=== PATIENT | male | born 1965 | race Caucasian/White ===

== ENCOUNTER 2018-04-15 03:57 | Inpatient (IN) | payer OTHER ==
[2018-04-15] MEDS ORDERED: FAMOTIDINE 20 MG/50 ML IVPB 20 MG/50 ML MG IVPB ONE ×2 (04:02→04:19)
[2018-04-15] MEDS ORDERED: MAG HYDROX/AL HYDROX/SIMETH 30 ML UNIT-DOSE CUP PO ONE (04:02)
--- NOTE | 2018-04-15 04:02 | PDOC ---
History of Present Illness - General Stated Complaint: ABD PAIN History Source: Patient Exam Limitations: No Limitations - History of Present Illness Travel History: No Initial Comments: 04/15/18 04:38 Best Contact: PCP:Dr.Richard Castillo [phone] Pmhx: HTN, SZ, Diastolic HF Pshx: Lap appendectomy, Left elbow orif, F/L shoulder arthroscopy Allergies:NKDA FH:0 Social Hx: Cigarettes/ denies Alcohol/social Drugs/ Heroin, cocaine Last alcohol consumption: x3d ago/3 [employer] and 2 shots of vodka 04/15/18 04:59 52-year-old male presents to the emergency department complaining of epigastric abdominal discomfort since approximately 0200 hrs. this morning. Pain is described as 10/10 sharp constant nonradiating discomfort. The pain is exacerbated on touch and sent movements and there are no alleviating factors. Patient states he had a cheeseburger with a milkshake at approximately 0130 hrs. at a diner. Patient should be at the pain with the food he had. Patient states he was trying to burp to make himself feel better but he was unable to do so. Patient denies fever, chills, nausea/vomiting/ diarrhea, headache, dizziness, lightheadedness, facial pains, neck pain/back pain, chest pain, shortness of breath, flank pains, urinary symptoms: Frequency/ urgency/hesitancy, burning upon urination or hematuria, extremity numbness or tingling sensation. Patient denies history of similar symptoms. Patient initially denied ever drinking alcohol but then admitted to having consumed 3 [employer] sent to shots of vodka 3 days ago. No history of pancreatitis. Past History - Past Medical History Allergies/Adverse Reactions: Allergies Allergy/AdvReac Type Severity Reaction Status Date / Time No Known Allergies Allergy Verified 04/15/18 04:23 Home Medications: Ambulatory Orders Amlodipine Besylate 10 mg PO DAILY 12/04/17 Aspirin 81 mg PO DAILY 12/04/17 Furosemide [Lasix] 60 mg PO BID 12/04/17 Metoprolol Succinate 25 mg PO DAILY 12/04/17 Sacubitril/Valsartan [Entresto 49 mg-51 mg Tablet] 1 tab PO BID 12/04/17 COPD: No HTN: Yes Hypercholesterolemia: Yes - Immunization History Immunization Up to Date: Yes - Suicide/Smoking/Psychosocial Hx Smoking History: Never smoked Have you smoked in the past 12 months: No Hx Alcohol Use: No Drug/Substance Use Hx: No Substance Use Type: Heroin Review of Systems - Review of Systems Able to Perform ROS?: Yes Comments:: 04/15/18 04:15 CONSTITUTIONAL: Absent: fever, chills, diaphoresis, generalized weakness, malaise, loss of appetite HEENT: Absent: rhinorrhea, nasal congestion, throat pain, throat swelling, difficulty swallowing, mouth swelling, ear pain, eye pain, visual Changes CARDIOVASCULAR: Absent: chest pain, loss of consciousness, palpitations, irregular heart rate, peripheral edema RESPIRATORY: Absent: cough, shortness of breath, dyspnea with exertion, orthopnea, wheezing, stridor, hemoptysis GASTROINTESTINAL: +epigastric abd pain Absent:abdominal distension, nausea, vomiting, diarrhea, constipation, melena, hematochezia GENITOURINARY: Absent: dysuria, frequency, urgency, hesitancy, hematuria, flank pain, genital pain MUSCULOSKELETAL: Absent: myalgia, arthralgia, joint swelling SKIN: Absent: rash, itching, pallor HEMATOLOGIC/IMMUNOLOGIC: Absent: easy bleeding, easy bruising, lymphadenopathy, frequent infections ENDOCRINE: Absent: unexplained weight gain, unexplained weight loss, heat intolerance, cold intolerance NEUROLOGIC: Absent: headache, focal weakness or paresthesias, dizziness, unsteady gait, seizure, mental status changes, bladder or bowel incontinence PSYCHIATRIC: Absent: anxiety, depression, suicidal or homicidal ideation, hallucinations. Is the patient limited Wolof proficient: No *Physical Exam - Physical Exam Comments: 04/15/18 04:16 GENERAL: Well developed, well nourished. Awake and alert. No acute distress. HEENT: Normocephalic, atraumatic. PERRLA, EOMI. No conjunctival pallor. Sclera are non- icteric. Moist mucous membranes. Oropharynx is clear. NECK: Supple. Full ROM. No JVD. Carotid pulses 2+ and symmetric, without bruits. No thyromegaly. No lymphadenopathy. CARDIOVASCULAR: Regular rate and rhythm. No murmurs, rubs, or gallops. Distal pulses are 2+ and symmetric. PULMONARY: No evidence of respiratory distress. Lungs clear to auscultation bilaterally. No wheezing, rales or rhonchi. ABDOMINAL: Soft. Non-tender. Non-distended. No rebound or guarding. No organomegaly. Normoactive bowel sounds. MUSCULOSKELETAL Normal range of motion at all joints. No bony deformities or tenderness. No CVA tenderness. EXTREMITIES: No cyanosis. No clubbing. No edema. No calf tenderness. SKIN: Warm and dry. Normal capillary refill. No rashes. No jaundice. NEUROLOGICAL: Alert, awake, appropriate. Cranial nerves 2-12 intact. No deficits to light touch and temperature in face, upper extremities and lower extremities. No motor deficits in the in face, upper extremities and lower extremities. Normoreflexic in the upper and lower extremities. Normal speech. Toes are down- going bilaterally. Gait is normal without ataxia. PSYCHIATRIC: Cooperative. Good eye contact. Appropriate mood and affect. ED Treatment Course - LABORATORY CBC & Chemistry Diagram: 04/15/18 04:00 04/15/18 04:00 - RADIOLOGY Radiograph Interpretation: 04/15/18 06:26 CAT scan abdomen/pelvis IV contrast. Preliminary findings: No appreciable pancreatic enlargement or pancreatic/peripancreatic inflammation/very early pancreatitis may not be visualized on CT. The lipase is over 3000 and therefore , it is quite possible that there is pancreatitis but not yet visible on CT. Cholelithiasis is noted. Best seen on the coronal view there is a 8.8 mm x 2 mm calcification in the area of the distal common bile duct near the ampulla. The possibility of common bile duct stone needs to be considered. Correlate with biliary enzymes to help with obstruction. Evaluate for obstruction. MRCP may be helpful to better visualize the biliary stones. MR may help to visualize pancreatic edema not seen on CT. Normal spleen, adrenal glands, no urinary tract stone or obstruction. No bowel obstruction or inflammation. No free intraperitoneal air or fluid fluid. Bilateral inguinal hernias containing vessels and fat but no bowel. Nonobstructed. Small hiatal hernia. Some fluid retain or reflux into the distal esophagus. Osseous structures are intact. Progress Note - Progress Note Progress Note: 0503hrs: Call Dr. Castillo [phone]/pt's PMD 0546hrs: Spoke to radiologist Dr. Key who states he sees a 8.5 mm distal common bile duct stone 0631hrs: Called [facility]/surgery combustion engineer: [phone] 0637hrs: SPoke to Dr. Torres/surgery combustion engineer. will see pt this am Medical Decision Making - Medical Decision Making 04/15/18 05:47 52-year-old male with a history of hypertension and seizures presents to the ER complaining of epigastric discomfort. Patient states he had consumed alcohol 3 days ago and has no history of pancreatitis. Lipase: 2985 with an elevated WBC of 20,000. Patient was sent for abdomen and pelvis without by mouth or IV contrast due to elevated creatinine level of 2.2. Spoke to radiologist who sees the 8.5 mm distal common bile duct stone. This can be a biliary pancreatitis. Patient's PMD/Dr. Saad Castillo is not affiliated with [facility]. Therefore, patient will be admitted to hospitalist. MRCP will be a helpful in visualizing biliary's stones *DC/Admit/Observation/Transfer Diagnosis at time of Disposition: Pancreatitis Qualifiers: Chronicity: acute Pancreatitis type: unspecified pancreatitis type Acute pancreatitis complication: unspecified Qualified Code(s): K85.90 - Acute pancreatitis without necrosis or infection, unspecified Biliary stones Qualifiers: Cholelithiasis location: bile duct Cholecystitis presence: with cholecystitis Cholecystitis acuity: acute Biliary obstruction: with biliary obstruction Qualified Code(s): K80.43 - Calculus of bile duct with acute cholecystitis with obstruction - Discharge Dispostion Condition at time of disposition: Fair Decision to Admit order: Yes - Referrals - Patient Instructions - Post Discharge Activity
[2018-04-15 04:18] LABS: BASO % 0.2 % (0-2.0); EOS % 0.1 % (0-4.5); HEMATOCRIT 54.9 % (35.4-49); HEMOGLOBIN 19.3 GM/dL (11.7-16.9); LYMPH % 3.4 % (8-40); MCH 29.7 pg (25.7-33.7); MCHC 35.2 g/dl (32.0-35.9); MEAN CELL VOLUME 84.5 fl (80-96); MEAN PLT VOLUME 9.1 fl (7.5-11.1); MONO % 5.5 % (3.8-10.2); NEUT % 90.8 % (42.8-82.8); PLATELET COUNT 369 K/MM3 (134-434); RBC 6.49 M/mm3 (4.00-5.60)
[2018-04-15] MEDS ORDERED: MAG HYDROX/AL HYDROX/SIMETH 30 ML UNIT-DOSE CUP ONE (04:19)
[2018-04-15 04:24] VITALS: BMI 38.0
[2018-04-15] MEDS ORDERED: morphine CARPU-JECT 4 MG/1 ML DISP.SYRIN IVPUSH ONE (04:27)
[2018-04-15] MEDS ORDERED: ONDANSETRON 4 MG/2 ML VIAL IVPUSH ONE (04:28)
[2018-04-15] MEDS ORDERED: ONDANSETRON 4 MG/2 ML VIAL ONE (04:30)
[2018-04-15] MEDS ORDERED: morphine SULFATE 4 MG/ML VIAL ONE (04:30)
[2018-04-15 04:50] LABS: ALK PHOS 82 U/L (45-117); ANION GAP 9 MMOL/L (8-16); BILIRUBIN,TOTAL 5.6 mg/dL (0.2-1); BLOOD UREA NITROGEN 29 mg/dL (7-18); CALCIUM 9.5 mg/dL (8.5-10.1); CHLORIDE 99 mmol/L (98-107); CO2 28 mmol/L (21-32); CREATININE 2.2 mg/dL (0.55-1.3); GLUCOSE,RANDOM 129 mg/dL (74-106); LIPASE 3985 U/L (73-393); POTASSIUM 4.7 mmol/L (3.5-5.1); SGOT/AST 88 U/L (15-37); SGPT/ALT 115 U/L (13-61); SODIUM 136 mmol/L (136-145); TOT PROT 7.8 g/dl (6.4-8.2)
[2018-04-15] MEDS ORDERED: SODIUM CHLORIDE 1,000 ML IV STA (04:53)
[2018-04-15] MEDS ORDERED: HYDROmorphone HCL CARPU-JECT 2 MG/1 ML DISP.SYRIN IVPUSH ONE (05:46)
[2018-04-15] MEDS ORDERED: HYDROmorphone HCl 2 MG/ML VIAL ONE (05:47)
[2018-04-15 05:57] LABS: ANISOCYTOSIS 2+; PLATELET ESTIMATE ADEQUATE
--- NOTE | 2018-04-15 06:05 | PN ---
Teaching Attending Note Name of Resident: Luciano Tilley ATTENDING PHYSICIAN STATEMENT I saw and evaluated the patient. I reviewed the resident's note and discussed the case with the resident. I agree with the resident's findings and plan as documented. SUBJECTIVE: Patient is a 52 year old man with history of HTN, diastolic CHF, seizure disorder, heroin and cocaine abuse who presents to the ER complaining of epigastric abdominal discomfort since approximately 0200 hrs. this morning. Pain is described as 10/10 sharp constant nonradiating discomfort. The pain is exacerbated on touch and sent movements and there are no alleviating factors. Patient states he had a cheeseburger with a milkshake at approximately 0130 hrs. at a Diner. He denies fever, chills, nausea/vomiting/diarrhea, headache, dizziness, lightheadedness, facial pains, neck pain/back pain, chest pain, shortness of breath, flank pains, or urinary symptoms. He initially denied ever drinking alcohol but then admitted to having consumed 3 [employer] sent to shots of vodka 3 days ago. No history of pancreatitis. OBJECTIVE: Alert Vital Signs Period Temp Pulse Resp BP Sys/Hernandez Pulse Ox Last 24 Hr 98.3 F 88 24 185/112 97-97 HEENT: No Jaundice, eye redness or discharge, PERRLA, EOMI. Normocephalic, atraumatic. External ears are normal and hearing is grossly intact. No nasal discharge. Neck: Supple, nontender. No palpable adenopathy or thyromegaly. No JVD Chest: Good effort. Clear to auscultation and percussion. Heart: Regular. No S3, rub or murmur Abdomen: Not distended, soft, tender epigastrium and no HSM. No rebound or guarding. Normoactive bowel sounds. Ext: Peripheral pulses intact. No leg edema. Skin: Warm and dry. No petechiae, rash or ecchymosis. Neuro: Alert. Oriented x3. CN 2-12 grossly intact. Sensation grossly intact in all four extremities and DTR are symmetric. Home Medications Medication Instructions Recorded Amlodipine Besylate 10 mg PO DAILY 12/04/17 Aspirin 81 mg PO DAILY 12/04/17 Furosemide [Lasix] 60 mg PO BID 12/04/17 Metoprolol Succinate 25 mg PO DAILY 12/04/17 Sacubitril/Valsartan [Entresto 49 1 tab PO BID 12/04/17 mg-51 mg Tablet] Abnormal Lab Results 04/15/18 04/15/18 04:00 04:00 WBC 20.0 H RBC 6.49 H Hgb 19.3 H Hct 54.9 H Absolute Neuts (auto) 18.2 H Neutrophils % 90.8 H Neutrophils % (Manual) 86.0 H Lymphocytes % 3.4 L D Lymphocytes % (Manual) 7.0 L Monocytes % (Manual) 1 L BUN 29 H Creatinine 2.2 H Random Glucose 129 H Total Bilirubin 5.6 H AST 88 H ALT 115 H Creatine Kinase 459 H Lipase 3985 H ASSESSMENT AND PLAN: 1. Acute pancreatitis - May be related to alcohol or drug use, but preliminary reading of his abdominal CT scan showed 8.5 mm distal CBD stone. No reported pancreatic abscess or fluid collection. Lab data suggest hemoconcentration, but will monitor him closely in view of leukocytosis and trend LFTs. Will hydrate him - gently - and monitor closely in view of CHF history. Pain control with percocet. Consult GI and surgery. Check HbA1c and urine toxicology. Monitor closely for drug withdrawal. For uncontrolled hypertension, will restart home antihypertensive drugs and add new drugs if necessary to attain normotension. Discussed nonpharmacologic measures to control hypertension. 2. Tobacco Use We will provide patient all the necessary assistance to facilitate smoking cessation and prescribe Nicotine patch. 3. REJI - Likely due to dehydration, intravascular volume contraction and/or rhabdomyolysis. Will get UA, kidney sonogram and trend CPK while hydrating him. Consult nephrology and avoid nephrotoxic agents such as NSAIDS, aminoglycosides , contrast dyes and certain Alternative medicine products. 4. Obesity - Will provide patient all the necessary assistance , counseling and positive reinforcement to facilitate weight loss. Consult gluer and wedger. 5. Alcohol abuse - Implement [facility] alcohol withdrawal protocol, fall and aspiration precautions. Treat with thiamine and folic acid and monitor electrolytes (Ca,Mg,K,P). Pitching Coach patient about abstaining from alcohol and refer to alcohol detox upon discharge. 6. DVT prophylaxis - Heparin 5000u sq tid. 7. Advance directives - Full code
[2018-04-15] MEDS ORDERED: HYDROmorphone HCl 2 MG/ML VIAL IVPUSH PRN (06:59)
[2018-04-15] MEDS ORDERED: ONDANSETRON 4 MG/2 ML VIAL IVPUSH PRN (07:10)
[2018-04-15] MEDS ORDERED: LACTATED RINGERS SOLUTION 1,000 ML/1,000 ML INFUS.BAG IV SCH ×3 (07:15→15:45)
--- NOTE | 2018-04-15 07:15 | HP ---
CHIEF COMPLAINT: Abdominal pain PCP: Dr. Roy HISTORY OF PRESENT ILLNESS: The patient is a 52 yo m w/ PMH Polysubstance abuse, HTN, Diastolic CHF who comes into the ED c/o epigatric abdominal pain for the past 1 day. Patient states approx 7pm he had a cheeseburger, after which he began to experience abdominal discomfort. The discomfort became worse over the course of the night which prompted him to seek medical attention. The patient describes the pain as 10/10, sharp, nonradiating epigastric pain which is worse with movement or lying down and has no alleviating factors. Patient states that he usually drinks 2 times per week, drinking 2 beers and 2 shots per drinking episode. His last drink was 3 days ago where he had 2 beers and 3 shots. Patient denies ever withdrawing from alcohol. CIWA on interview was 0. Patient denies fevers, chills , chest pain, SOB. ER course was notable for: (1) Lipase 3985 (2) BUN 29, Cr. 2.2 (3) WBC 20, CT AP showing 8.8x 2 mm stone at the ampulla. Recent Travel: none PAST MEDICAL HISTORY: see HPI PAST SURGICAL HISTORY: appy, shoulder surgery, LT shoulder ORIF Social History: Smoking: denies Alcohol: see HPI Drugs: heroin, cocaine Family History: patient denies Allergies No Known Allergies Allergy (Verified 04/15/18 04:23) HOME MEDICATIONS: Home Medications Medication Instructions Recorded Amlodipine Besylate 10 mg PO DAILY 12/04/17 Aspirin 81 mg PO DAILY 12/04/17 Furosemide [Lasix] 60 mg PO BID 12/04/17 Metoprolol Succinate 25 mg PO DAILY 12/04/17 Sacubitril/Valsartan [Entresto 49 1 tab PO BID 12/04/17 mg-51 mg Tablet] Torsemide 60 mg PO BID 04/15/18 REVIEW OF SYSTEMS CONSTITUTIONAL: Absent: fever, chills, diaphoresis, generalized weakness, malaise, loss of appetite, weight change HEENT: Absent: rhinorrhea, nasal congestion, throat pain, throat swelling, difficulty swallowing, mouth swelling, ear pain, eye pain, visual changes CARDIOVASCULAR: Absent: chest pain, syncope, palpitations, irregular heart rate, lightheadedness , peripheral edema RESPIRATORY: Absent: cough, shortness of breath, dyspnea with exertion, orthopnea, wheezing, stridor, hemoptysis GASTROINTESTINAL: Absent: vomiting, diarrhea, constipation, melena, hematochezia GENITOURINARY: Absent: dysuria, frequency, urgency, hesitancy, hematuria, flank pain, genital pain MUSCULOSKELETAL: Absent: myalgia, arthralgia, joint swelling, back pain, neck pain SKIN: Absent: rash, itching, pallor HEMATOLOGIC/IMMUNOLOGIC: Absent: easy bleeding, easy bruising, lymphadenopathy, frequent infections ENDOCRINE: Absent: unexplained weight gain, unexplained weight loss, heat intolerance, cold intolerance NEUROLOGIC: Absent: headache, focal weakness or paresthesias, dizziness, unsteady gait, seizure, mental status changes, bladder or bowel incontinence PSYCHIATRIC: Absent: anxiety, depression, suicidal or homicidal ideation, hallucinations. PHYSICAL EXAMINATION Vital Signs - 24 hr 04/15/18 04/15/18 04:00 04:37 Temperature 98.3 F Pulse Rate 88 Respiratory 24 H Rate Blood Pressure 185/112 H O2 Sat by Pulse 97 97 Oximetry (%) GENERAL: Awake, alert, and fully oriented, in no acute distress. In apparent discomfort HEAD: Normal with no signs of trauma. NECK: Normal range of motion, supple without lymphadenopathy, JVD, or masses. LUNGS: Breath sounds equal, clear to auscultation bilaterally. No wheezes, and no crackles. No accessory muscle use. HEART: Regular rate and rhythm, normal S1 and S2 without murmur, rub or gallop. ABDOMEN: Soft, not distended, decrease bowel sounds. Exquisite tenderness to palpation all across the abdomen with guarding. Pain worse in epigastrium. LOWER EXTREMITIES: 2+ pulses, warm, well-perfused. No calf tenderness. No peripheral edema. NEUROLOGICAL: Cranial nerves II-X intact. Normal speech. PSYCHIATRIC: Cooperative. Good eye contact. Appropriate mood and affect. SKIN: Warm, dry, normal turgor, no rashes or lesions noted, normal capillary refill. Laboratory Results - last 24 hr 04/15/18 04/15/18 04:00 04:00 WBC 20.0 H RBC 6.49 H Hgb 19.3 H Hct 54.9 H MCV 84.5 MCH 29.7 MCHC 35.2 RDW 14.0 Plt Count 369 MPV 9.1 Absolute Neuts (auto) 18.2 H Total Counted 100 Neutrophils % 90.8 H Neutrophils % (Manual) 86.0 H Band Neutrophils % 5.0 Lymphocytes % 3.4 L D Lymphocytes % (Manual) 7.0 L Monocytes % 5.5 Monocytes % (Manual) 1 L Eosinophils % 0.1 Eosinophils % (Manual) 1.0 Basophils % 0.2 Nucleated RBC % 0 Platelet Estimate Adequate Platelet Comment No clumping noted Polychromasia 1+ Anisocytosis 2+ Spherocytes 1+ Sodium 136 Potassium 4.7 Chloride 99 Carbon Dioxide 28 Anion Gap 9 BUN 29 H Creatinine 2.2 H Creat Clearance w eGFR 31.84 Random Glucose 129 H Calcium 9.5 Total Bilirubin 5.6 H AST 88 H ALT 115 H Alkaline Phosphatase 82 Creatine Kinase 459 H Creatine Kinase Index 0.3 CK-MB (CK-2) 1.7 Troponin I < 0.02 Total Protein 7.8 Albumin 4.0 Lipase 3985 H ASSESSMENT/PLAN: The patient is a 52 yo m w/ PMH dCHF, HTN, polysubstance abuse who comes in c/o epigatric pain found to have gallstone pancreatitis. #abdominal pain 2/2 pancreatitis -NPO -surgery consulted from ED -LR @ 52 for now given CHF history -pain control with 2mg IV diludid -GI consult given presence of stone for possible ERCP #REJI -IVF as above -UA #polysubstance abouse -currently does not appear to be in withdrawal -monitor for withdrawal signs. #FEN -LR @ 52 -lytes wnl -NPO #prophy -heparin SQ 5k units TID #dispo -admit med surg -home medications verified with patient. Visit type - Emergency Visit Emergency Visit: Yes ED Registration Date: 04/15/18 Care time: The patient presented to the Emergency Department on the above date and was hospitalized for further evaluation of their emergent condition. - New Patient This patient is new to me today: Yes Date on this admission: 04/15/18 - Critical Care Critical Care patient: No
[2018-04-15 07:26] LABS: URINE APPEARANCE CLEAR; URINE COLOR AMBER; URINE GLUCOSE (UA) NEGATIVE (NEGATIVE); URINE KETONE NEGATIVE (NEGATIVE); URINE LEUK ESTERASE TRACE (NEGATIVE); URINE NITRITE NEGATIVE (NEGATIVE); URINE PROTEIN NEGATIVE (NEGATIVE); URINE UROBILINOGEN 4.0 E.U/dl mg/dL (0.2-1.0)
[2018-04-15 07:43] LABS: URINE BACTERIA RARE /hpf (NONE SEEN); URINE HYALINE CAST 3 /lpf
[2018-04-15] MEDS: HEPARIN NA (PORCINE) 5,000 UNITS/ML 1ML VIAL SQ SCH ×2 (08:30→14:23)
[2018-04-15 09:03] VITALS: TEMP 100.1
[2018-04-15] MEDS ORDERED: ASPIRIN 81 MG CHEWABLE TABLETS PO SCH (10:00)
[2018-04-15] MEDS ORDERED: metoPROLOL SUCCINATE 25 MG TAB.SR.24H (FP) PO SCH (10:00)
[2018-04-15] MEDS ORDERED: amLODIPine BESYLATE 10 MG TABLET (FP) PO SCH (10:00)
[2018-04-15] MEDS ORDERED: MORPHINE SULFATE 2 MG/ML VIAL IVPUSH PRN (10:36)
--- NOTE | 2018-04-15 11:20 | CONSULT ---
Consult Consult Specialty:: General Surgery Reason for Consultation:: Abdominal pain/ choledocholithiasis - History Source History Provided By: Patient, Medical Record Limitations to Obtaining History: No Limitations - Alcohol/Substance Use Hx Alcohol Use: No - Smoking History Smoking history: Never smoked Have you smoked in the past 12 months: No Home Medications - Allergies Allergies/Adverse Reactions: Allergies Allergy/AdvReac Type Severity Reaction Status Date / Time No Known Allergies Allergy Verified 04/15/18 04:23 - Home Medications Home Medications: Ambulatory Orders Amlodipine Besylate 10 mg PO DAILY 12/04/17 Aspirin 81 mg PO DAILY 12/04/17 Furosemide [Lasix] 60 mg PO BID 12/04/17 Metoprolol Succinate 25 mg PO DAILY 12/04/17 Sacubitril/Valsartan [Entresto 49 mg-51 mg Tablet] 1 tab PO BID 12/04/17 Torsemide 60 mg PO BID 04/15/18 Physical Exam Vital Signs: Vital Signs Temperature 100.1 F H 04/15/18 08:57 Pulse Rate 91 H 04/15/18 08:57 Respiratory Rate 18 04/15/18 08:57 Blood Pressure 94/70 04/15/18 08:57 O2 Sat by Pulse Oximetry (%) 90 L 04/15/18 08:57 Labs: CBC, BMP 04/15/18 04:00 04/15/18 04:00
--- NOTE | 2018-04-15 13:32 | EKG ---
Test Reason : Blood Pressure : / mmHG Vent. Rate : 082 BPM Atrial Rate : 082 BPM P-R Int : 150 ms QRS Dur : 098 ms QT Int : 350 ms P-R-T Axes : 041 082 -89 degrees QTc Int : 408 ms NORMAL SINUS RHYTHM T WAVE ABNORMALITY, CONSIDER INFERIOR ISCHEMIA ABNORMAL ECG WHEN COMPARED WITH ECG OF 04-DEC-2017 17:17, T WAVE VARIATION Confirmed by MATT MACIEL MD ([id number]) on 04/15/2018 1:32:38 PM Referred By: RAHEL GILL Confirmed By:MATT MACIEL MD
--- NOTE | 2018-04-15 13:58 | CON.GI ---
Consult Consult Specialty:: GI Referred by:: Hospitalist Service Reason for Consultation:: Pancreatitis - History of Present Illness Chief Complaint: Abdominal Pain History of Present Illness: The patient is a 52 y/o male admitted through [facility] for evaluation of abdominal pain. He states that he was in [place] up until yesterday. He had eaten a roast beef wedge for lunch followed by a cheeseburger with fries 6:30 PM for dinner. About 30 minutes later bhe began exoperiencing severe mid abdominal pain. It became progressively more intense and constant. Hwaited to be evaluated initially because he though it was "Gas". When things didn't resolve on their own, he came to the ER. In the ER, blood work revealed a WBC of 20K, bili 5.6. The pain persists, somewhat improved. CT scan of the abdomen revealed choledocholithiasis along with calcification in the region of the distal CBD raising suspicion for choledocholithiasis. He denies similar episodes in the past. He drinks 2-3 beers along with 2-3 shots once per week and states that his last drink was 1 week ago. - History Source History Provided By: Patient - Past Medical History Cardio/Vascular: Yes: HTN, Other (Hypertensive cardiomyopathy with ? 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 Place of : [facility] History of Recent Travel: No Home Medications - Allergies Allergies/Adverse Reactions: Allergies Allergy/AdvReac Type Severity Reaction Status Date / Time No Known Allergies Allergy Verified 04/15/18 04:23 - Home Medications Home Medications: Ambulatory Orders Amlodipine Besylate 10 mg PO DAILY 12/04/17 Aspirin 81 mg PO DAILY 12/04/17 Furosemide [Lasix] 60 mg PO BID 12/04/17 Metoprolol Succinate 25 mg PO DAILY 12/04/17 Sacubitril/Valsartan [Entresto 49 mg-51 mg Tablet] 1 tab PO BID 12/04/17 Torsemide 60 mg PO BID 04/15/18 Family Disease History - Family Disease History Family Disease History: Other: Father (Alive: Healthy), Mother (: 64: lung ca), Brother (4, healthy), Daughter (1, healthy) Other Family History: No family history of colorectal cancer or other GI malignancy Review of Systems - Review of Systems Constitutional: reports: Fever Cardiovascular: denies: Chest Pain Respiratory: reports: SOB Physical Exam-GI Vital Signs: Vital Signs Temperature 97.2 04/15/18 1400 Pulse Rate 102 04/15/18 1400 Respiratory Rate 22 04/15/18 1400 Blood Pressure 144/104 04/15/18 1400 O2 Sat by Pulse Oximetry (%) 90 % on RA 04/15/18 1400 Constitutional: Yes: Calm Eyes: No: Sclera Icterus Cardiovascular: Yes: Tachycardia. No: Murmur Respiratory: Yes: CTA Bilaterally Gastrointestinal Inspection: No: Distention ...Auscultate: Yes: Normoactive Bowel Sounds ...Palpate: Yes: Tenderness (TTP mid abdomen > RUQ) ...Percussion: No: Tympanitic Edema: Yes Edema: LLE: 1+, RLE: 1+ Neurological: Yes: Alert Labs: CBC, BMP 04/15/18 04:00 04/15/18 04:00 Hepatic Panel Total Bilirubin 5.6 mg/dL (0.2-1) H 04/15/18 04:00 AST 88 U/L (15-37) H 04/15/18 04:00 ALT 115 U/L (13-61) H 04/15/18 04:00 Alkaline Phosphatase 82 U/L (45-117) 04/15/18 04:00 Albumin 4.0 g/dl (3.4-5.0) 04/15/18 04:00 Imaging - Results Cat Scan: Report Reviewed Assessment/Plan Gallstone pancreatitis with concern for possible cholangitis given CT scan finding of possible retained CBD. I discussed the case with Dr. Munoz, biliary endoscopist, as I do not perform ERCP. He explained that there is a problem with the ERBE device used during ERCP and that the patient should be transferred out to a tertiary care center as timing of the ERBE repair could not be determined. I discussed this with Dr. Falcon who agrred to initiate transfer. The patient's CHF specialist works out of [facility] and transfer to medical service there could be initiated. For now: Ordered repeat labs / type and cross IV hydration. increase to lactated ringers @ 200cc/hr and monitor cardiopulmonary status. with Hgb of 19 IV abx ordered zosyn) and ID consult placed
[2018-04-15] MEDS ORDERED: PIPERACILLIN/TAZOB 3.375 GM 3.375 GM in DEXTROSE 5%-WATER - 50 ML IVPB SCH ×2 (14:15→18:00)
[2018-04-15] MEDS ORDERED: MORPHINE SULFATE 2 MG/ML VIAL ONE (14:38)
[2018-04-15] MEDS ORDERED: PIPERACILLIN/TAZOB 3.375 GM 3.375 GM/50 ML BAG IVPB ONE (14:43)
--- NOTE | 2018-04-15 15:00 | CON.ID ---
Consult Consult Specialty:: infectious disease Referred by:: ED Reason for Consultation:: abdominal pain - History of Present Illness Chief Complaint: severe mid epigastric abdominal pain History of Present Illness: 52 yo man with acute onset of abdominal pain yesterday evening after ezting a burger and shake- no vomiting- tried gasx and giniger megha with worsening of pain and came to ED +BM yesterday no fevers or chills no vomiting no prior history of similar pain no ETOH yesterday admitted to [facility] [address] last february and transferred to [facility]- reports bilateral pneumonia and CHF no recent antibiotic use - History Source History Provided By: Patient Limitations to Obtaining History: No Limitations - Past Medical History Cardio/Vascular: Yes: HTN, Other (Hypertensive cardiomyopathy with ? right sided heart failure) Pulmonary: Yes: Pneumonia, Sleep Apnea Endocrine: No: Diabetes Mellitus - Past Surgical History Past Surgical History: Yes: Appendectomy Additional Surgical History: Bilateral rotator cuff surgery, left elbow surgery - Alcohol/Substance Use Hx Alcohol Use: No - Smoking History Smoking history: Never smoked Have you smoked in the past 12 months: No - Social History Usual Living Arrangement: Alone ADL: Independent Occupation: arranges transport for a [employer] History of Recent Travel: No Home Medications - Allergies Allergies/Adverse Reactions: Allergies Allergy/AdvReac Type Severity Reaction Status Date / Time No Known Allergies Allergy Verified 04/15/18 04:23 - Home Medications Home Medications: Ambulatory Orders Amlodipine Besylate 10 mg PO DAILY 12/04/17 Aspirin 81 mg PO DAILY 12/04/17 Furosemide [Lasix] 60 mg PO BID 12/04/17 Metoprolol Succinate 25 mg PO DAILY 12/04/17 Sacubitril/Valsartan [Entresto 49 mg-51 mg Tablet] 1 tab PO BID 12/04/17 Torsemide 60 mg PO BID 04/15/18 Family Disease History - Family Disease History Family Disease History: Other: Father (Alive: Healthy), Mother (: 64: lung ca), Brother (4, healthy), Daughter (1, healthy) Other Family History: No family history of colorectal cancer or other GI malignancy Review of Systems - Review of Systems Constitutional: reports: No Symptoms Eyes: reports: No Symptoms. denies: Blurred Vision HENT: reports: No Symptoms. denies: Difficult Swallowing, Throat Pain Neck: reports: No Symptoms Cardiovascular: denies: Chest Pain Respiratory: reports: SOB. denies: Cough Gastrointestinal: reports: Abdominal Pain. denies: Constipation, Diarrhea, Nausea, Vomiting Genitourinary: reports: No Symptoms. denies: Burning, Discharge, Dysuria Physical Exam Vital Signs: Vital Signs Temperature 100.1 F H 04/15/18 08:57 Pulse Rate 91 H 04/15/18 08:57 Respiratory Rate 18 04/15/18 08:57 Blood Pressure 94/70 04/15/18 08:57 O2 Sat by Pulse Oximetry (%) 90 L 04/15/18 08:57 Constitutional: Yes: Well Nourished, No Distress Eyes: Yes: Conjunctiva Clear HENT: Yes: Atraumatic, Normocephalic. No: Thrush Neck: Yes: Supple, Trachea Midline Cardiovascular: Yes: Regular Rate and Rhythm Respiratory: Yes: Regular, CTA Bilaterally Gastrointestinal: Yes: Normal Bowel Sounds, Tenderness, Epigastrium ...Rectal Exam: Yes: Deferred Renal/: No: Bladder Distention, CVA Tenderness - Left, CVA Tenderness - Right Musculoskeletal: Yes: WNL Extremities: Yes: WNL Edema: No Neurological: Yes: Alert, Oriented Labs: CBC, BMP 04/15/18 04:00 04/15/18 04:00 Laboratory Tests 04/15/18 04:00 Total Bilirubin 5.6 H AST 88 H ALT 115 H Alkaline Phosphatase 82 Creatine Kinase 459 H Lipase 3985 H Imaging - Results Chest X-ray: Report Reviewed, Image Reviewed Cat Scan: Report Reviewed (?CBD stone) Problem List - Problems (1) Choledocholithiasis Code(s): K80.50 - CALCULUS OF BILE DUCT W/O CHOLANGITIS OR CHOLECYST W/O OBST (2) Pancreatitis Code(s): K85.90 - ACUTE PANCREATITIS WITHOUT NECROSIS OR INFECTION, UNSP Qualifiers: Chronicity: acute Pancreatitis type: unspecified pancreatitis type Acute pancreatitis complication: unspecified Qualified Code(s): K85.90 - Acute pancreatitis without necrosis or infection, unspecified (3) Renal insufficiency Code(s): N28.9 - DISORDER OF KIDNEY AND URETER, UNSPECIFIED Assessment/Plan Biliary sepsis blood cultures, agree with zosyn to cover for possible biliary sepsis imaging per GI-MRCP adjust antibiotics for renal insufficiency overall prognosis is guarded
--- NOTE | 2018-04-15 15:18 | DS ---
Physical Exam: SUBJECTIVE: Patient seen and examined OBJECTIVE: Vital Signs Period Temp Pulse Resp BP Sys/Hernandez Pulse Ox Last 24 Hr 98.3 F-100.1 F 88-91 18-24 94-185/70-112 90-97 PHYSICAL EXAM GENERAL: The patient is awake, alert, and fully oriented, in no acute distress. HEAD: Normal with no signs of trauma. EYES: PERRL, extraocular movements intact, sclera anicteric, conjunctiva clear. ENT: Ears normal, nares patent, oropharynx clear without exudates, moist mucous membranes. NECK: Trachea midline, full range of motion, supple. LUNGS: Breath sounds equal, clear to auscultation bilaterally, no wheezes, no crackles, no accessory muscle use. HEART: Regular rate and rhythm, S1, S2 without murmur, rub or gallop. ABDOMEN: Soft, nontender, nondistended, normoactive bowel sounds, no guarding, no rebound, no hepatosplenomegaly, no masses. EXTREMITIES: 2+ pulses, warm, well-perfused, no edema. NEUROLOGICAL: Cranial nerves II through XII grossly intact. Normal speech, gait not observed. PSYCH: Normal mood, normal affect. SKIN: Warm, dry, normal turgor, no rashes or lesions noted. LABS Laboratory Results - last 24 hr 04/15/18 04/15/18 04/15/18 04:00 04:00 07:00 WBC 20.0 H RBC 6.49 H Hgb 19.3 H Hct 54.9 H MCV 84.5 MCH 29.7 MCHC 35.2 RDW 14.0 Plt Count 369 MPV 9.1 Absolute Neuts (auto) 18.2 H Total Counted 100 Neutrophils % 90.8 H Neutrophils % (Manual) 86.0 H Band Neutrophils % 5.0 Lymphocytes % 3.4 L D Lymphocytes % (Manual) 7.0 L Monocytes % 5.5 Monocytes % (Manual) 1 L Eosinophils % 0.1 Eosinophils % (Manual) 1.0 Basophils % 0.2 Nucleated RBC % 0 Platelet Estimate Adequate Platelet Comment No clumping noted Polychromasia 1+ Anisocytosis 2+ Spherocytes 1+ Sodium 136 Potassium 4.7 Chloride 99 Carbon Dioxide 28 Anion Gap 9 BUN 29 H Creatinine 2.2 H Creat Clearance w eGFR 31.84 Random Glucose 129 H Calcium 9.5 Total Bilirubin 5.6 H AST 88 H ALT 115 H Alkaline Phosphatase 82 Creatine Kinase 459 H Creatine Kinase Index 0.3 CK-MB (CK-2) 1.7 Troponin I < 0.02 Total Protein 7.8 Albumin 4.0 Lipase 3985 H Urine Color Lachelle Urine Appearance Clear Urine pH 6.0 Ur Specific [place] 1.012 Urine Protein Negative Urine Glucose (UA) Negative Urine Ketones Negative Urine Blood Negative Urine Nitrite Negative Urine Bilirubin 2.0 Urine Urobilinogen 4.0 e.u/dl Ur Leukocyte Esterase Trace Urine WBC (Auto) 2 Urine RBC (Auto) <1 Urine Bacteria Rare Hyaline Casts 3 HOSPITAL COURSE: Date of Admission:04/15/18 Date of Discharge: 04/15/18 Discharge Summary Reason For Visit: PENCREATITIS Current Active Problems Biliary stones (Acute) Choledocholithiasis (Acute) Pancreatitis (Acute) Renal insufficiency (Acute) Condition: Fair - Instructions Referrals: Sydni Gallagher [Primary Care Provider] - - Home Medications Comprehensive Discharge Medication List: Ambulatory Orders Amlodipine Besylate 10 mg PO DAILY 12/04/17 Aspirin 81 mg PO DAILY 12/04/17 Furosemide [Lasix] 60 mg PO BID 12/04/17 Metoprolol Succinate 25 mg PO DAILY 12/04/17 Sacubitril/Valsartan [Entresto 49 mg-51 mg Tablet] 1 tab PO BID 12/04/17 Torsemide 60 mg PO BID 04/15/18
--- NOTE | 2018-04-15 15:37 | PN ---
Progress Note (short form) - Note Progress Note: Case d/w GI fellow, Dr. Mobley from [facility]. Patient accepted for transfer. Will be seen by medicine service and seen by GI as change consultant. GI attending: Dr. Admaes. Will prepare CD, face sheet, med record. Will arrange for nurse to nurse sign out. Transfer center phone #: [phone]
[2018-04-15 15:45] VITALS: BP 91/63; PULSE 96
--- NOTE | 2018-04-15 16:54 | CON.CARD ---
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 Although there are no absolute contraindications, patient is considered at moderate risk for periprocedural complications due to his history of cardiomyopathy, obstructive sleep apnea and PHTN. Would strongly consider intubating patient for procedure for airway protection and management to avoid hypoxia. Hold Aspirin. Abx as per GI and ID. Full consult to follow.
--- NOTE | 2018-04-15 17:05 | PN ---
Teaching Attending Note Name of Resident: Taran De Leon ATTENDING PHYSICIAN STATEMENT I saw and evaluated the patient. I reviewed the resident's note and discussed the case with the resident. I agree with the resident's findings and plan as documented. SUBJECTIVE: The patient is a 52yo male with PMHx of Cardiomyopathy , Severe sleep apnea, HTN , Non-obstructive CAD on cath 02/2017, presented to the hospital for having abdominal pain after having a cheeseburger for dinner with some beer and 2 shots , one hour post eating his dinner developed severe pain with progression that could not sit still and came to ED. for further evaluations. Patient denies any smoking cigarette. patient states that he drinks 2-3 beers along with 2-3 shots once per week and states that his last drink was 1 week ago. Denies having any fever or chills. Patient denies having any similar episode prior. OBJECTIVE: Vital Signs Temperature 100.1 F H 04/15/18 08:57 Pulse Rate 96 H 04/15/18 16:23 Respiratory Rate 22 H 04/15/18 16:23 Blood Pressure 91/63 04/15/18 16:23 O2 Sat by Pulse Oximetry (%) 92 L 04/15/18 16:23 GENERAL: AA)x3 , in no acute distress. in NAD, nice gentleman. HEAD: Normal with no signs of trauma. NECK: Normal range of motion, supple , no JVD, or masses. LUNGS: Breath sounds equal, clear to auscultation bilaterally. No wheezes, and no crackles. No accessory muscle use. HEART: Regular rate and rhythm, normal S1 and S2 without murmur, rub or gallop. ABDOMEN: Soft, ND, decrease bowel sounds. mild epigastic tenderness. EXTREMITIES: 2+ pulses, warm, well-perfused. No calf tenderness. No peripheral edema. NEUROLOGICAL: Cranial nerves II-X intact. Normal speech. PSYCHIATRIC: Cooperative. Good eye contact. Appropriate mood and affect. SKIN: Warm, dry, normal turgor, no rashes or lesions noted, normal capillary refill. CBCD WBC 20.0 K/mm3 (4.0-10.0) H 04/15/18 04:00 RBC 6.49 M/mm3 (4.00-5.60) H 04/15/18 04:00 Hgb 19.3 GM/dL (11.7-16.9) H 04/15/18 04:00 Hct 54.9 % (35.4-49) H 04/15/18 04:00 MCV 84.5 fl (80-96) 04/15/18 04:00 MCHC 35.2 g/dl (32.0-35.9) 04/15/18 04:00 RDW 14.0 % (11.9-15.9) 04/15/18 04:00 Plt Count 369 K/MM3 (134-434) 04/15/18 04:00 MPV 9.1 fl (7.5-11.1) 04/15/18 04:00 CMP Sodium 136 mmol/L (136-145) 04/15/18 04:00 Potassium 4.7 mmol/L (3.5-5.1) 04/15/18 04:00 Chloride 99 mmol/L (98-107) 04/15/18 04:00 Carbon Dioxide 28 mmol/L (21-32) 04/15/18 04:00 Anion Gap 9 MMOL/L (8-16) 04/15/18 04:00 BUN 29 mg/dL (7-18) H 04/15/18 04:00 Creatinine 2.2 mg/dL (0.55-1.3) H 04/15/18 04:00 Creat Clearance w eGFR 31.84 (>60) 04/15/18 04:00 Random Glucose 129 mg/dL (74-106) H 04/15/18 04:00 Calcium 9.5 mg/dL (8.5-10.1) 04/15/18 04:00 Total Bilirubin 5.6 mg/dL (0.2-1) H 04/15/18 04:00 AST 88 U/L (15-37) H 04/15/18 04:00 ALT 115 U/L (13-61) H 04/15/18 04:00 Alkaline Phosphatase 82 U/L (45-117) 04/15/18 04:00 Total Protein 7.8 g/dl (6.4-8.2) 04/15/18 04:00 Albumin 4.0 g/dl (3.4-5.0) 04/15/18 04:00 CARDIAC ENZYMES Creatine Kinase 459 IU/L (26-308) H 04/15/18 04:00 Troponin I < 0.02 ng/ml (0.00-0.05) 04/15/18 04:00 Current Medications Generic Name Dose Route Start Last Admin Trade Name Beck PRN Reason Stop Dose Admin Amlodipine Besylate 10 mg 04/15/18 10:00 04/15/18 11:07 Norvasc - PO 10 mg DAILY AMELIA Administration Aspirin 81 mg 04/15/18 10:00 04/15/18 11:06 Asa - PO 81 mg DAILY AMELIA Administration Heparin Sodium (Porcine) 5,000 unit 04/15/18 07:15 04/15/18 14:23 Heparin - SQ Not Given TID AMELIA Piperacillin Sod/Tazobactam 50 mls @ 100 mls/hr 04/15/18 18:00 Sod 3.375 gm/ Dextrose IVPB Q8H-IV AMELIA Protocol Lactated Ringer's 1,000 ml in 1,000 mls @ 200 mls/hr 04/15/18 15:45 04/15/18 15:50 Lactated Ringers Solution IV 200 mls/hr ASDIR AMELIA Administration Metoprolol Succinate 25 mg 04/15/18 10:00 04/15/18 11:07 Toprol Xl - PO 25 mg DAILY AMELIA Administration Morphine Sulfate 1 mg 04/15/18 10:36 04/15/18 14:39 Morphine Sulfate IVPUSH 1 mg Q4H PRN Administration PAIN LEVEL 6-10 Ondansetron HCl 4 mg 04/15/18 07:10 Zofran Injection IVPUSH Q6H PRN NAUSEA Home Medications Medication Instructions Recorded Amlodipine Besylate 10 mg PO DAILY 12/04/17 Aspirin 81 mg PO DAILY 12/04/17 Furosemide [Lasix] 60 mg PO BID 12/04/17 Metoprolol Succinate 25 mg PO DAILY 12/04/17 Sacubitril/Valsartan [Entresto 49 1 tab PO BID 12/04/17 mg-51 mg Tablet] Torsemide 60 mg PO BID 04/15/18 CT scan of the abdomen: revealed choledocholithiasis along with calcification in the region of the distal CBD raising suspicion for choledocholithiasis. He denies similar episodes in the past. ASSESSMENT AND PLAN: The patient is a 52yo male with PMHx of Cardiomyopathy , Severe sleep apnea, HTN , Non-obstructive CAD on cath 02/2017, presented to the hospital for having abdominal pain after having a cheeseburger for dinner with some beer and 2 shots , one hour post eating his dinner developed severe pain with progression that could not sit still and came to ED. for further evaluation. # Acute Gallstone pancreatitis cannot r/o cholangitis. Dr. Munoz, biliary endoscopist, who has a problem with the ERBE device used during ERCP and that the patient should be transferred out to a tertiary care center as timing of the ERBE repair could not be determined. Discussed with Dr. Diehl and discussed with , it's the patient's best interest to tx the patient. Also the patient's commercial loan specialist is at the [facility]. On IVF Lactated ringers at 200c/hr, on IV antibiotics for Biliary sepsis, Zosyn to continue # Biliary sepsis: blood cultures, continue with IV zosyn for possible biliary sepsis , adjusted the dose according renal function. # Cardiomyopathy with moderate to severe chronic biventricular dysfunction # Severe sleep apnea # Pulmonary HTN # Non-obstructive CAD on cath 02/2017 # Acute on chronic CKD Hold Aspirin. Tx the patient to [facility]. Patient was accepted for transfer to medical service. GI attending: Dr. Adames. Cardio. , to send the CDs, face sheet, med record. Will arrange for nurse to nurse sign out. Transfer center phone #: [phone]
--- NOTE | 2018-04-15 17:41 | DS ---
Physical Exam: SUBJECTIVE: Patient seen and examined. Pt. endorses eating a cheeseburger with milk shake shortly before onset of abdominal pain. Pt. normally has meals like this without pain and thought this was just gas initially but the pain became too severe so he came to the ED. OBJECTIVE: Vital Signs Period Temp Pulse Resp BP Sys/Hernandez Pulse Ox Last 24 Hr 98.3 F-100.1 F 88-96 18-24 91-185/63-112 90-97 PHYSICAL EXAM GENERAL: The patient is awake, alert, and fully oriented, in no acute distress. HEAD: Normal with no signs of trauma. EYES: PERRL, extraocular movements intact, sclera anicteric, conjunctiva clear. ENT: Ears normal, nares patent, moist mucous membranes. NECK: Trachea midline, full range of motion, supple. LUNGS: Breath sounds equal, clear to auscultation bilaterally, no wheezes, no crackles, no accessory muscle use. HEART: Regular rate and rhythm, S1, S2 without murmur ABDOMEN: Soft, tender to palpation diffusely, obese, nondistended, normoactive bowel sounds, no guarding, no rebound EXTREMITIES: 2+ dorsal pedal pulses, warm, no calf tenderness, well-perfused, no edema. NEUROLOGICAL: Normal speech, gait not observed. PSYCH: Normal mood, normal affect. SKIN: Warm, dry, normal turgor, no rashes or lesions noted, no bowden turners sign , no rosi's sign. LABS Laboratory Results - last 24 hr 04/15/18 04/15/18 04/15/18 04:00 04:00 07:00 WBC 20.0 H RBC 6.49 H Hgb 19.3 H Hct 54.9 H MCV 84.5 MCH 29.7 MCHC 35.2 RDW 14.0 Plt Count 369 MPV 9.1 Absolute Neuts (auto) 18.2 H Total Counted 100 Neutrophils % 90.8 H Neutrophils % (Manual) 86.0 H Band Neutrophils % 5.0 Lymphocytes % 3.4 L D Lymphocytes % (Manual) 7.0 L Monocytes % 5.5 Monocytes % (Manual) 1 L Eosinophils % 0.1 Eosinophils % (Manual) 1.0 Basophils % 0.2 Nucleated RBC % 0 Platelet Estimate Adequate Platelet Comment No clumping noted Polychromasia 1+ Anisocytosis 2+ Spherocytes 1+ Sodium 136 Potassium 4.7 Chloride 99 Carbon Dioxide 28 Anion Gap 9 BUN 29 H Creatinine 2.2 H Creat Clearance w eGFR 31.84 Random Glucose 129 H Calcium 9.5 Total Bilirubin 5.6 H AST 88 H ALT 115 H Alkaline Phosphatase 82 Creatine Kinase 459 H Creatine Kinase Index 0.3 CK-MB (CK-2) 1.7 Troponin I < 0.02 Total Protein 7.8 Albumin 4.0 Lipase 3985 H Urine Color Lachelle Urine Appearance Clear Urine pH 6.0 Ur Specific [place] 1.012 Urine Protein Negative Urine Glucose (UA) Negative Urine Ketones Negative Urine Blood Negative Urine Nitrite Negative Urine Bilirubin 2.0 Urine Urobilinogen 4.0 e.u/dl Ur Leukocyte Esterase Trace Urine WBC (Auto) 2 Urine RBC (Auto) <1 Urine Bacteria Rare Hyaline Casts 3 HOSPITAL COURSE: Date of Admission:04/15/18 Date of Discharge: 04/15/18 Pt. observed in ED for suspected Acute Pancreatitis. Abdominal CT showed small calcifications in region of the distal CBD which is not dilated and gallstones in gallbladder. Labs were positive for elevated LFTs including TBili of 5.6. Pt. started on IVF. Consults to GI appreciated and recommends emergent ERCP with subsequent cholecystectomy. Pt. up for transfer as our ERCP machine is down. Cardiology consult appreciated stating no contraindications to surgery though would recommend intubation given cardiac and pulmonary co-morbidities. ID consult appreciated and advised starting on renally dosed Zosyn for anaerobic empiric coverage as Pt. has REJI as well. Hospital course discussed and agreed upon with Pt. and medical staff. Pt. transferred to [facility], where Pt.s plate slitter and inspector works and physician to physician transfer initiated. Patient accepted for transfer. Will be seen by medicine service and seen by GI as education sales consultant. GI attending: Dr. Adames. Minutes to complete discharge: 38 Discharge Summary Reason For Visit: PENCREATITIS Condition: Stable - Instructions Diet, Activity, Other Instructions: You presented to the ED with worsening abdominal pain. You were seen by Paper Bag Machine Operator who determined that you need a higher level of care where you can have an ERCP done emergently to remove a blockage. Please follow up with your Primary Care Physician within 1 week after discharge Please return to the ER if you are experiencing on going abdominal pain, worsening shortness of breath or fever. Referrals: Sydni Gallagher [Primary Care Provider] - Disposition: TRANSFER ACUTE CARE/OTHER HOSP - Home Medications Comprehensive Discharge Medication List: Ambulatory Orders Amlodipine Besylate 10 mg PO DAILY 12/04/17 Aspirin 81 mg PO DAILY 12/04/17 Furosemide [Lasix] 60 mg PO BID 12/04/17 Metoprolol Succinate 25 mg PO DAILY 12/04/17 Sacubitril/Valsartan [Entresto 49 mg-51 mg Tablet] 1 tab PO BID 12/04/17 Torsemide 60 mg PO BID 04/15/18 This patient is new to me today: Yes Date on this admission: 04/15/18 Emergency Visit: Yes ED Registration Date: 04/15/18 Care time: The patient presented to the Emergency Department on the above date and was hospitalized for further evaluation of their emergent condition. Critical Care patient: No - Discharge Referral Referred to [facility] Med P.C.: No
--- NOTE | 2018-04-15 20:01 | CONS ---
DATE OF CONSULTATION: 04/15/2018 CARDIOLOGY CONSULTATION REQUESTING PHYSICIAN: Fili Ruggiero D.O. REASON FOR CONSULTATION: Cardiac evaluation prior to ERCP. HISTORY OF PRESENT ILLNESS: The patient is a 52-year-old male with a significant past cardiac history including cardiomyopathy with moderate to severe biventricular dysfunction, nonischemic, severe obstructive sleep apnea, pulmonary hypertension, nonobstructive coronary artery disease on catheterization in February 2017 at [facility], chronic renal insufficiency, who presented to the emergency room on April 15 for evaluation of severe abdominal pain and fever. The patient underwent a CT scan of the abdomen and pelvis which showed cholelithiasis and possible choledocholithiasis. GI was consulted and recommended an ERCP. The patient is followed at [facility] by Dr. Homar Henao and has undergone extensive cardiac evaluation. He underwent a cardiac catheterization in the fall of 2016 showing nonobstructive coronary artery disease. On cardiac review of systems, he denies syncope or palpitations. He denies chest pain but does have chronic dyspnea on exertion. He denies PND, orthopnea, or recent lower extremity edema. PAST MEDICAL HISTORY: As above. Also includes hypertension. ALLERGIES: None. HOME MEDICATION: Torsemide 60 mg p.o. b.i.d., Entresto 49/41 b.i.d., Toprol XL 25 daily, aspirin 81 mg daily, amlodipine 10 mg daily. FAMILY HISTORY: Noncontributory. SOCIAL HISTORY: Nonsmoker. Social drinker. 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 Occasionally uses cocaine. PHYSICAL EXAMINATION: GENERAL: Currently in no distress. VITAL SIGNS: Temperature 100.1, pulse 96. Blood pressure initially 144/104, then 91/63. O2 saturation 92 on room air. S1, 2 regular. No S3, no S4. CHEST: Clear. ABDOMEN: Soft nontender. EXTREMITIES: No edema. LABORATORY: White count 20,000, hematocrit 19, platelets 369. Sodium 136, potassium 4.7, creatinine 2.2, no comparison. AST 88, ALT 115, alkaline phosphatase 82, CK 459, troponin negative, lipase 3985. Urinalysis was negative. Chest x-ray: prominent mediastinum, degenerative changes, excessive soft tissue and clear lungs. No acute process. ECG: Normal sinus rhythm with nonspecific ST changes inferiorly and laterally. IMPRESSION: 1. Nonischemic cardiomyopathy with moderate to severe biventricular dysfunction. 2. Severe sleep apnea. 3. Pulmonary hypertension. 4. Nonobstructive coronary disease. 5. Acute on chronic renal failure. 6. Pancreatitis, choledocholithiasis for endoscopic retrograde cholangiopancreatography. RECOMMENDATION: 1. There are currently no absolute cardiac contraindications to ERCP: There is no aortic stenosis, no decompensated CHF, and no evidence of acute coronary syndrome. Although there are no absolute contraindications, the patient would be considered at moderate risk for periprocedural complications due to his extensive cardiac history including cardiomyopathy, obstructive sleep apnea, and pulmonary hypertension. He would be at risk for periprocedural hypoxemia from sedation: would strongly consider intubating the patient for this procedure for airway protection and management in order to avoid potential hypoxemic complications. 2. Hold aspirin. 3. Antibiotics as per GI and ID. Will follow. Dee [id number]
== END 2018-04-15 17:00 | disposition short-term general hospital (02) | DRG 282 ==
LOC: JER 03:57 → JERBED 05:09
PROVIDERS: ADMIT Internal Medicine; ATTEND Internal Medicine
DX: K85.90 Acute pancreatitis without necrosis or infection, unspecified (principal); K80.43 Calculus of bile duct with acute cholecystitis with obstruction; I50.30 Unspecified diastolic (congestive) heart failure; G40.909 Epilepsy, unspecified, not intractable, without status epilepticus; N17.9 Acute kidney failure, unspecified; E86.0 Dehydration; F10.10 Alcohol abuse, uncomplicated; E66.9 Obesity, unspecified; Z68.38 Body mass index [BMI] 38.0-38.9, adult; F17.210 Nicotine dependence, cigarettes, uncomplicated; F19.10 Other psychoactive substance abuse, uncomplicated; G47.30 Sleep apnea, unspecified; I43 Cardiomyopathy in diseases classified elsewhere; A41.9 Sepsis, unspecified organism; I27.20 Pulmonary hypertension, unspecified; I25.10 Atherosclerotic heart disease of native coronary artery without angina pectoris; I13.0 Hypertensive heart and chronic kidney disease with heart failure and stage 1 through stage 4 chronic kidney disease, or unspecified chronic kidney disease; N18.9 Chronic kidney disease, unspecified; Z95.5 Presence of coronary angioplasty implant and graft
CPT/HCPCS: 36415; 71046-TC-FY; 74176-TC; 80053; 81003; 81015; 82550; 82553; 83690; 84484; 85025; 93005; 93010; 99285-25; J1644; J7030